=== PATIENT | female | born 1985 | race African-American/Black ===

== ENCOUNTER 2017-11-26 18:15 | Observation (INO) | payer MEDICAID ==
[~2017-11-26] VITALS: Ht 162.6 cm; Wt 111.1 kg
[2017-11-26] MEDS ORDERED: ACE3T PO (18:49)
[2017-11-26] MEDS ORDERED: PREN-96 PO (18:49)
== END 2017-11-26 19:38 | disposition home or self-care (01) | DRG 563 ==
LOC: LDRP 18:15
PROVIDERS: ADMIT Obstetrics & Gynecology; ATTEND Obstetrics & Gynecology
DX: O60.03 Preterm labor without delivery, third trimester (principal); Z3A.34 34 weeks gestation of pregnancy
CPT/HCPCS: 59025; 81002; G0378